=== PATIENT | male | born 1935 | race Two or more races ===

== ENCOUNTER 2019-09-15 19:34 | Emergency (ER) | payer MEDICAID, OTHER ==
[~2019-09-15] VITALS: Ht 162.6 cm; Wt 68.0 kg
[2019-09-15] MEDS ORDERED: cloNIDine HCL 0.1 MG TAB PO ONE (20:15)
[2019-09-15 20:48] LABS: Basophils # (auto) 0 10 ^3/uL (0-0.2); Eosinophils # (auto) 0 10 ^3/uL (0-0.8); Mean Corpuscular Hemoglobin 26.4 pg (28.0-32.0); Red Blood Cells 4.79 10^6/uL (4.5-5.90)
[2019-09-15 20:50] LABS: Basophils % (auto) 0.1 % (0.0-2.0); Hematocrit 38.9 % (41.0-53.0); Hemoglobin 12.6 g/dL (13.5-17.5); Lymphocytes # (auto) 1.1 10 ^3/uL (0.4-5.4); Lymphocytes % (auto) 8.2 % (10.0-50.0); Mean Corpuscular Hgb Conc. 32.6 g/dL (32.0-36.0); Mean Corpuscular Volume 81.2 fL (80.0-100.0); Monocytes # (auto) 1.5 10 ^3/uL (0-1.3); Monocytes % (auto) 11.4 % (0.0-12.0); Neutrophils # (auto) 10.3 10 ^3/uL (1.6-8.6); Neutrophils % (auto) 80.3 % (37.0-80.0); Platelet Count (auto) 252 10^3/uL (140-450); Red Cell Distribution Width 14.3 % (11.8-14.3); White Blood Cell 12.8 10^3/uL (4.4-10.8)
[2019-09-15 21:07] LABS: Albumin 3.8 g/dL (3.4-5.0); Calcium 9.5 mg/dL (8.5-10.1); Magnesium 2.8 mg/dL (1.6-2.6)
[2019-09-15 21:15] LABS: Bilirubin, Total 1.1 mg/dL (0.2-1.0)
[2019-09-15 21:20] LABS: BUN/Creatinine Ratio 20.8; Potassium 2.6 mmol/L (3.5-5.1)
[2019-09-15] MEDS ORDERED: metroNIDAZOLE 500MG/100ML 100 ML IV ONE (22:45)
[2019-09-15] MEDS ORDERED: cefTRIAXone 1GM/50ML D5W 50 ML IV ONE (22:45)
[2019-09-16] MEDS ORDERED: SODIUM CHLORIDE 0.9% 1,000 ML IV ONE (00:15)
[2019-09-16] MEDS: POTASSIUM CHL 20MEQ/100ML 100 ML IV SCH ×2 (03:30→06:00)
[2019-09-16 07:45] VITALS: BP 145/80
== END 2019-09-16 08:15 | disposition short-term general hospital (02) ==
LOC: ER 19:34
DX: K59.00 Constipation, unspecified (principal); K56.2 Volvulus; N28.9 Disorder of kidney and ureter, unspecified; E87.6 Hypokalemia; E78.5 Hyperlipidemia, unspecified; I10 Essential (primary) hypertension; Z86.73 Personal history of transient ischemic attack (TIA), and cerebral infarction without residual deficits
CPT/HCPCS: 36415; 74176; 80053; 82150; 83690; 83735; 84484; 85025; 93005; 96365; 96366; 96367; 96375; 99285; J0696; J3480; J3490; J7030